=== PATIENT | male | born 1950 | race Caucasian/White ===

== ENCOUNTER → 2018-01-14 | Outpatient (CLI) | payer MEDICARE ==
--- NOTE | 2018-01-14 11:30 | RAD ---
Exam : Carotid Duplex with Grayscale Ultrasound and Spectral and Color Doppler Analysis: Clinical Indications: Carotid stenosis. Comparison study: None available. PQRS Compliance Statement - Stenosis calculations for CT, MR and conventional angiography are based upon measurement of the distal ICA diameter in accordance with the NASCET methodology. Stenosis calculations for carotid ultrasound studies are derived from validated velocity criteria which are known to correlate with the NASCET methodology. Findings: The common, internal and external carotid arteries were examined by grayscale, color and spectral Doppler ultrasound. There is extensive atherosclerotic vascular calcification within visualized portions of the bilateral common carotid arteries extending through the carotid bulbs and the proximal internal carotid arteries. Some mild visual narrowing is seen on color Doppler imaging. Elevated velocities within the external carotid arteries noted bilaterally. Flow in both vertebral arteries is antegrade. The following are the velocities and ratios in the carotid arteries on both sides: RIGHT ICA PV: 105cm/sec RIGHT CCA PV: 109cm/sec RIGHT ICA ED: 25cm/sec RIGHT IC/CCPV: Less than 2 RIGHT VERTEBRAL: antegrade flow LEFT ICA PV: 112cm/sec LEFT CCA PV: 102cm/sec LEFT ICA ED: 22cm/sec LEFT IC/CCPV: Less than 2 LEFT VERTEBRAL: antegrade flow <50% ICA Stenosis: PSV < 125cm/s (EDV < 40cm/s; SVR < 2.0) 50-69% ICA Stenosis: PSV < 125-229cm/s (EDV 40-99cm/s; SVR 2.0-3.9) >70% ICA Stenosis: PSV > 230cm/s (EDV >100cm/s; SVR >4.0) Impression: Significant atherosclerotic vascular calcification involving the common carotid arteries and proximal internal carotid arteries is less than 50% stenosis by ultrasound velocity criteria.
== END | disposition home or self-care (01) ==
LOC: US 09:38
PROVIDERS: ATTEND Nurse Practitioner
DX: I65.22 Occlusion and stenosis of left carotid artery (principal)
CPT/HCPCS: 93880